=== PATIENT | male | born 1990 | race African-American/Black ===

== ENCOUNTER 2022-05-17 08:34 | Emergency (ER) | payer OTHER, SELFPAY ==
[2022-05-17 08:58] VITALS: BP 122/68; PULSE 63; RESP 18; TEMP 36.4; O2SAT 98; BMI 23.8
[2022-05-17] MEDS: Loratadine 10 MG TABLET PO (09:59)
--- NOTE | 2022-05-17 10:27 | ED.EYEPROB ---
HPI - Eye Problem General Chief complaint: Eye Problems Stated complaint: ?[facility] Both Eyes Time Seen by Provider: 05/17/22 09:27 Source: patient Mode of arrival: ambulatory Limitations: no limitations History of Present Illness HPI Narrative: 32-year-old male patient with no significant past medical history presenting to the emergency department today for complaints of bilateral red, itching eyes with clear drainage. He states symptoms began yesterday as itching, which caused him to rub his eyes, further causing more redness, itching, and discomfort. He denies any foreign body sensation. Denies any known chemical exposure or sick contacts. He states he is concerned that he may have caught something from his son, as he coughed in close proximity to him with sputum landing in both his eyes. He denies any purulent discharge from his eyes. He endorses vision changes with blurry vision. Denies any fever, chills, headache, change in gait. MD chief complaint: eye pain, eye redness and vision change Onset (ago): day(s) Onset description: gradual Eye Symptoms: redness, pain, itching and discharge (clear) Place: home Associated symptoms: none Treatments Prior to Arrival: none Related Data Previous Rx's Medication Instructions Recorded loratadine 10 mg tablet (Claritin) 10 mg PO DAILY #14 tabs 05/17/22 Allergies Allergy/AdvReac Type Severity Reaction Status Date / Time No Known Allergies Allergy Verified 05/17/22 09:45 Review of Systems Review of Systems: Yes all other systems are reviewed and are negative Constitutional: Constitutional: Reports no additional constitutional complaints, Denies chills, Denies fever(s) and Denies headache(s) Eyes: Eyes: Reports no additional eye complaints, Reports blurry vision, Reports change in vision, Denies diplopia, Reports eye discharge (clear watery), Denies floaters, Reports irritation, Reports itchy eyes, Reports eye pain, Denies seeing flashes, Denies photophobia and Denies spots in vision ENT: Reports system reviewed and no additional complaints, except as documented, Denies headache(s), Denies lip swelling, Denies throat swelling and Denies tongue swelling Cardiovascular: Cardiovascular: Reports no additional cardiovascular complaints Respiratory: Respiratory: Reports no additional respiratory complaints and Denies wheezing Integumentary/Breasts: Skin/Breast: Reports system reviewed and no additional complaints, except as docu, Denies rash, Denies sores and Denies wounds Neurologic: Reports system reviewed and no additional complaints, except as documented and Denies headache(s) Allergic/Immunologic: Allergic/Immunologic: Denies urticaria, Reports itchy eyes, Denies lip swelling, Denies seasonal rhinorrhea, Denies throat swelling, Denies tongue swelling and Denies wheezing PMFSH Past Medical History Attestation statement: The following information was validated with the patient. Source: old records reviewed Social History Social History Advance Directives: No Advance Directives Information Provided: No Physical Exam Vital Signs: Vital Signs: Last Vital Signs Temp 97.6 F 05/17/22 08:58 Pulse 63 05/17/22 08:58 Resp 18 05/17/22 08:58 BP 122/68 05/17/22 08:58 Pulse Ox 98 05/17/22 08:58 O2 Del Method 05/17/22 08:58 BMI result Body Mass Index 23.8 Const: General: cooperative, alert and awake Nutritional Appearance: average body habitus Orientation/consciousness: patient oriented x3 Limitations: no limitations HEENT: Head: Yes normocephalic and Yes atraumatic Ears: hearing grossly normal bilaterally and external ears normal General nose exam: Normal external nose present and Normal nares present Face and sinus: Yes normal facial exam, Yes face symmetric, No edema and No Facial tenderness on exam of face and sinuses Eyes: Visual Loera: normal visual loera by confrontation Alignment and Position: alignment normal Periorbital: periorbital findings abnormal bilateral periorbital swelling Eyelids: Yes eyelids normal Conjunctivae: conjunctival abnormal bilateral Sclerae: sclerae normal Corneas: corneas normal Pupils: Equal, round and reactive pupils present EOM: EOMs intact bilaterally Direct Ophthalmoscopy: normal light reflex, no photophobia and No photophobia Neck: Neck: Yes normal visual inspection and Yes full ROM Chest: Chest palpation & inspection: normal inspection of the chest Resp: Effort & Inspection: normal respiratory effort Auscultation: clear to auscultation bilaterally, no crackles, no rhonchi and no wheezes Cardio: Rate: regular rate Rhythm: regular rhythm Skin: General skin exam: no rashes or lesions noted Neuro: General: patient oriented x3 Cranial nerves: Yes Equal, round and reactive pupils present Course Course Course Narrative: 0950: physical exam suspicious for allergic vs viral conjuntivitis as discharge is clear and thin vs yellow/green sticky discharge. Respiratory panel ordered and loratidine ordered for symptom managment. 1050: Serology negative for flu A, B, RSV, or Covid. Medications Administered Discontinued Medications Generic Name Dose Route Start Last Admin Trade Name Davidq PRN Reason Stop Dose Admin Loratadine 10 mg 05/17/22 09:47 05/17/22 09:59 Loratadine 10 Mg Tablet PO 05/17/22 09:48 10 mg ONCE ONE Administration Medical Decision Making Medical Decision Making [facility] Narrative: 32-year-old male patient presenting to the emergency department today for complaints of bilateral red, itching eyes with clear drainage than began yesterday without any foreign body sensation or purulent discharge. Loratidine given with pt unsure of improvement. Serology negative for flu A, flu B, RSV, or COVID. Low suspicion for bacterial or viral conjunctivitis. Physical exam and history consistent with allergic conjunctivitis. Plan to discharge patient with prescription for loratadine and recommendation for [id number] eyedrops for management of symptoms. Physical exam, history, plan, and diagnosis discussed with patient with no unanswered questions at this time. Educated to return to the emergency department if with worsening symptoms, inability to open his eyes, worsening vision changes, headache, fever, chills, or any other concerning symptom. Recommended follow-up with your primary care provider for further recommendations and management. Recommended to follow-up with an ophthamologist for further eye assessment and recommendations. Differential Diagnoses: Differential diagnosis (allergic conjunctivitis) Lab Attestation: I reviewed the patient's lab results. Discharge Plan Discharge Clinical Impression: Conjunctivitis Patient Disposition: Home, Self-Care Instructions: Conjunctivitis (ED) Additional Instructions: Please return to the emergency department if you have worsening symptoms, inability to open your eyes, worsening vision changes, headache, fever, chills, or any other concerning symptom. Recommended follow-up with your primary care provider for further recommendations and management. Recommended to follow-up with an ophthamologist for further eye assessment. Prescriptions: New loratadine [Claritin] 10 mg tablet 10 mg PO DAILY Qty: 14 0RF Referrals: [facility] [facility] [Provider Group] [facility] [place] [facility]Provider Group] [facility] [place] [facility] [Provider Group] Stand Alone Forms: Work/School Release Interventions: ED Discharge Assessment Last Done: 05/17/22 11:14 Discharge Date/Time: 05/17/22 11:17 Print Language: Thai
[2022-05-17 10:38] LABS: Influenza A PCR NEGATIVE (Negative); Influenza B PCR NEGATIVE (Negative); Resp Syncy Virus RNA Qual PCR NEGATIVE (Negative); SARS COV2 PCR INHOUSE NEGATIVE (Negative)
== END 2022-05-17 11:17 | disposition home or self-care (01) ==
PROVIDERS: Nurse Practitioner Family; Emergency Provider Emergency Medicine Emergency Medical Services
DX: H10.9 Unspecified conjunctivitis (principal); Z20.822 Contact with and (suspected) exposure to COVID-19
CPT/HCPCS: 0241U; 99283